=== PATIENT | female | born 1985 | race Caucasian/White ===

== ENCOUNTER → 2020-07-24 10:42 | Outpatient (BNVA) | payer OTHER, SELFPAY | PROVIDERS: Visit Provider Internal Medicine Gastroenterology | DX: Z76.89 Persons encountering health services in other specified circumstances (principal) ==

== ENCOUNTER → 2020-12-01 09:49 | Outpatient (BNVA) | payer OTHER, SELFPAY | PROVIDERS: PCP Physician Assistant; Visit Provider Internal Medicine Gastroenterology ==

== ENCOUNTER 2021-02-16 14:02 | Outpatient (REF) | payer OTHER, SELFPAY ==
--- NOTE | ~2021-02-16 | CT_ITS ---
EXAMINATION: CT ENTEROGRAPHY ABDOMEN AND PELVIS WITH CONTRAST CLINICAL INFORMATION: Periumbilical pain COMPARISON: None TECHNIQUE: Study performed with oral VoLumen (1350 mL) and 480 mL of water to distend the abdomen. The patient was injected with 85 mL Omnipaque 350 intravenous contrast which was administered without adverse effect. Coronal and sagittal reformatted images were obtained at the technologist's workstation. This CT examination was performed using dose optimization techniques as appropriate, variously including the following: *Automated exposure control *Adjustment of mA and/or kV according to patient size (this includes techniques or standardized protocols for targeted exams where dose is matched to indication/reason for exam; i.e. extremities or head) *Use of iterative reconstruction technique DLP: 661 mGy-cm FINDINGS: GASTROINTESTINAL FINDINGS: Stomach: Well-distended and normal in appearance. Small intestine: Satisfactorily distended and normal in appearance. Large intestine: Well-distended and normal in appearance. No perirectal changes demonstrated. The appendix is not identified. No inflammatory changes are seen in the right lower quadrant. Additional findings: No abnormal enhancement of the vasa recta or significant mesenteric or retroperitoneal lymphadenopathy is seen. No abdominal abscess or fistulous tract demonstrated. ABDOMINAL AND PELVIC CT FINDINGS: Liver, gallbladder, biliary tract: Unremarkable Pancreas: Unremarkable Spleen: Unremarkable Adrenal glands and kidneys: Unremarkable Ureters and bladder: Unremarkable Lymphovascular structures: Unremarkable There may be a small 2 x 3 cm left adnexal cyst. The uterus and ovaries are otherwise unremarkable. There is a small umbilical hernia containing fat. Bones: Unremarkable Lung bases: Unremarkable CT/CT enterography IMPRESSION: Small umbilical hernia containing fat. Question 2 x 3 cm left adnexal cyst. Otherwise unremarkable exam.
[2021-02-16] MEDS: iohexoL 350 MG/ML 100 ML INFUS..BTL 85 ML IV (15:37)
== END 2021-02-16 14:03 | disposition home or self-care (01) ==
LOC: HO.US 14:02
PROVIDERS: Visit Provider Internal Medicine Gastroenterology
DX: R10.33 Periumbilical pain (principal)
CPT/HCPCS: 74177; Q9967

== ENCOUNTER → 2021-03-05 09:45 | Outpatient (BNVA) | payer OTHER, SELFPAY | PROVIDERS: PCP Physician Assistant; Visit Provider Internal Medicine Gastroenterology ==

== ENCOUNTER → 2021-05-29 13:31 | Outpatient (BNVA) | payer OTHER, SELFPAY | PROVIDERS: PCP Physician Assistant; Referring Provider Physician Assistant; Visit Provider Surgery | DX: K42.9 Umbilical hernia without obstruction or gangrene (principal) | CPT/HCPCS: 99202 ==

== ENCOUNTER 2021-06-18 07:27 | Day surgery (SDC) | payer OTHER, SELFPAY ==
[2021-06-11 11:32] VITALS: BMI 45.7
[2021-06-18] VITALS (13 sets, daily range): BP systolic 109–137; BP diastolic 66–89; PULSE 60–78; RESP 14–20; TEMP 36.2–36.6; O2SAT 93–99
--- NOTE | 2021-06-18 07:49 | P.CONAN_ITS ---
[facility] Active Problems Active Problems: All Active Problems (Updated 06/11/21 @ 11:32 by Letty lomeli RN) Periumbilical abdominal pain (Acute) Umbilical hernia (Acute) Food allergy (Acute) Past Medical History Medical History Asthma Bipolar disorder COVID-19 vaccine series completed Depression Fibromyalgia Food allergy Gastroparesis Sleep apnea Family History Family History Father No problems noted. Mother No problems noted. Surgical History Surgical History History of tonsillectomy Hx of appendectomy Hx of endoscopy History of Problems with Anesthesia: No Social History Social History Alcohol intake: never Patient Tobacco Use Status: Former Tobacco user Quit Date: 2018 Tobacco use type: Cigarette Substance Use Type: Former Substance User and Marijuana Have you been hit, kicked, punched, or otherwise hurt by someone within the past year? If so, by whom?: No Are you DNR?: No Advance Directives: No Advance Directives Information Provided: Yes (informational brochure mailed) Advance Directives on File: No Recently lost weight without trying: No Eating poorly because of decreased appetite: No Nutrition Risks: No Nutritional Risk Patient : No FDLMP: 05/21/21 : No Poor oral hygiene: No (has temporary crown upper front tooth) Meds Allergies Allergy/AdvReac Type Severity Reaction Status Date / Time almond Allergy Mild Gastrointestinal Verified 06/11/21 11:24 Upset cashew nut Allergy Mild Gastrointestinal Verified 06/11/21 11:24 Upset egg Allergy Mild Gastrointestinal Verified 06/11/21 11:24 Upset hazelnut Allergy Mild Gastrointestinal Verified 06/11/21 11:24 Upset milk Allergy Mild Gastrointestinal Verified 06/11/21 11:24 Upset peanut Allergy Mild Gastrointestinal Verified 06/11/21 11:24 Upset sesame seed Allergy Mild Gastrointestinal Verified 06/11/21 11:24 Upset shellfish derived Allergy Mild Gastrointestinal Verified 06/11/21 11:24 Upset soybean Allergy Mild Gastrointestinal Verified 06/11/21 11:24 Upset walnut Allergy Mild Gastrointestinal Verified 06/11/21 11:24 Upset wheat Allergy Mild Gastrointestinal Verified 06/11/21 11:31 Upset Active Medications: Current Medications Cefazolin Sodium/Dextrose (Ancef) 2 gm in 50 mls @ 100 mls/hr IV PREOP ONE Stop: 06/18/21 08:04 Lactated Ringer's (Lr) 1,000 mls @ 100 mls/hr IVCONT .Q10H EDE Home Medications Medication Instructions Recorded Confirmed Last Taken Type acetaminophen 500 mg tablet 1,000 mg PO Q4H PRN 05/29/21 06/11/21 Unknown History cholecalciferol (vitamin D3) 25 25 mcg PO DAILY 05/29/21 06/11/21 Unknown History mcg (1,000 unit) tablet gabapentin 600 mg tablet 600 mg PO TID 05/29/21 06/11/21 06/18/21 06:00 History melatonin 5 mg tablet 5 mg PO BEDTIME PRN 05/29/21 06/11/21 Unknown History mirtazapine 15 mg tablet 15 mg PO BEDTIME 05/29/21 06/11/21 Unknown History ondansetron 4 mg disintegrating 4 mg PO TID PRN 05/29/21 06/11/21 Unknown History tablet prazosin 1 mg capsule 1 - 2 mg PO BEDTIME 05/29/21 06/11/21 Unknown History pyridoxine (vitamin B6) 50 mg 50 mg PO DAILY 05/29/21 06/11/21 Unknown History tablet albuterol sulfate 90 mcg/actuation 2 puff INHALATION Q4-6H PRN 06/11/21 06/11/21 Unknown History aerosol inhaler (Ventolin HFA) buspirone 7.5 mg tablet 1 tab PO BID 06/11/21 06/11/21 Unknown History clonidine HCl 0.1 mg tablet 0.1 mg PO TID 06/11/21 06/11/21 Unknown History epinephrine 0.3 mg/0.3 mL 0.3 mg IM Q10M PRN 06/11/21 06/11/21 Unknown History injection, auto-injector (EpiPen) fluticasone propionate 220 1 puff INHALATION BID 06/11/21 06/11/21 Unknown History mcg/actuation HFA aerosol inhaler Exam Exam Date and Time: June 18, 2021 0749 Height,Weight and Vital Signs: Height 5 ft 2 in Weight 113.398 kg Airway Mallampati Class: II TM Dist: >3cm Heart: RRR Lungs: CTA Assessment and Plan Assessment Anesthesia Assessment: Anesthesia Plan Discussed and Chart Reviewed Final Anesthetic Review History of Problems with Anesthesia: No NPO: Yes ASA Class: III Final Preanesthetic Review: Meds/Allgs Chart Reviewed, Consent Obtained/Reviewed and Anes Risks/Benef Reviewed Patient Risk: Intermediate Procedure Risk: Low Anesthetic Plan Anesthetic Plan: GA Disposition: Standard PACU
[2021-06-18 07:57] LABS: UPreg QC Valid YES; Urine Pregnancy NEGATIVE (NEGATIVE)
--- NOTE | 2021-06-18 08:36 | MHC.SHP ---
Pre-Procedural Eval Section A Date of Service: 06/18/21 The patient is an INPATIENT: No Changes since office visit: Yes Patient answered all questions; No Cold of Flu in the past 2 weeks, No New Medical Problems and No Changes in Medication The History & Physical has been completed within 30 days and I have reviewed it.: Yes Section B Chief Complaint: Umbilical hernia without obstruction or gangrene Allergies: Allergies Allergy/AdvReac Type Severity Reaction Status Date / Time almond Allergy Mild Gastrointestinal Verified 06/18/21 08:10 Upset cashew nut Allergy Mild Gastrointestinal Verified 06/18/21 08:10 Upset egg Allergy Mild Gastrointestinal Verified 06/18/21 08:10 Upset hazelnut Allergy Mild Gastrointestinal Verified 06/18/21 08:10 Upset milk Allergy Mild Gastrointestinal Verified 06/18/21 08:10 Upset peanut Allergy Mild Gastrointestinal Verified 06/18/21 08:10 Upset sesame seed Allergy Mild Gastrointestinal Verified 06/18/21 08:10 Upset shellfish derived Allergy Mild Gastrointestinal Verified 06/18/21 08:10 Upset soybean Allergy Mild Gastrointestinal Verified 06/18/21 08:10 Upset walnut Allergy Mild Gastrointestinal Verified 06/18/21 08:10 Upset wheat Allergy Mild Gastrointestinal Verified 06/18/21 08:10 Upset Plan Diagnosis/Plan: Unchanged I have reviewed the history and physical and performed a pertinent physical examination on my patient. No changes have occurred unless specified.
[2021-06-18] MEDS: Lactated Ringers 1,000 ML 100 ML IVCONT (08:54)
--- NOTE | 2021-06-18 09:54 | W.PM.OPN ---
Operative Note Operative Note Date of Service: 06/18/21 Narrative: Preoperative diagnosis: Umbilical hernia Postoperative diagnosis: Same Procedure: Repair of umbilical hernia with mesh Surgeon: Koby Paul MD Geriatric Psychiatrist: Heather Shrestha PA-C Anesthesia: General LMA Indications for procedure: 35-year-old female patient presenting with complaints of abdominal pain in the periumbilical region found on CT enterography to have a moderate size umbilical hernia containing preperitoneal fat. Operative findings: 3 cm umbilical hernia with no evidence of incarcerated bowel Specimen: None Estimated blood loss: 2 mL Complications: None Procedure details: Patient was brought to the OR and placed in a supine position. After administering general anesthesia the patient's abdomen was prepped with ChloraPrep and draped in a sterile fashion. A surgical time-out was called and the consent confirmed. Patient received preoperative antibiotics and Venodyne boots were in place. Local anesthesia consisting of 0.5% Sensorcaine without epinephrine was infiltrated around the umbilicus. Curvilinear incision was made in transverse fashion around the top portion of the umbilicus. This was carried down through subcutaneous tissue down to the hernia sac. The umbilical skin was then dissected off the hernia sac using electrocautery. The hernia sac was then dissected down to the fascial defect. Fascial edge was then dissected circumferentially and in the infra muscular dissection performed. An 8 cm space was created in in for muscular location. An 8 cm round Ventralex mesh was then obtained. This was then deployed into the retro muscular space and secured in 4 quadrants using a 1 Tycron suture. Fascia was then closed over the mesh using [id number] 1 Tycron sutures. Wounds were then irrigated and suctioned dry. Additional local anesthesia was infiltrated into the muscular tissue with his known. Umbilical skin was then reapproximated to the fascial edge using a 3-0 Polysorb suture. Dermis was reapproximated using interrupted 3-0 Polysorb sutures. Skin was closed using a running subcuticular 4-0 Polysorb suture. Steri-Strips 2 x 2 gauze and Tegaderm were then applied. The patient tolerated the procedure well. Sponge, instrument, and needle counts reported as correct 3 patient was transferred to PACU in stable condition.
[2021-06-18] MEDS: oxyCODONE HCl Immed Release 5 MG TABLET 10 MG PO (10:20)
[2021-06-18] MEDS: Acetaminophen 325 MG TABLET 650 MG PO (10:20)
[2021-06-18] MEDS: fentaNYL citrate/PF 100 MCG/2 ML VIAL 50 MCG IVPUSH ×4 (10:22→11:02)
== END 2021-06-18 12:00 | disposition home or self-care (01) ==
PROVIDERS: PCP Physician Assistant; Visit Provider Surgery
PROC: (CPT 49585; principal; 2021-06-18 09:10)
DX: K42.9 Umbilical hernia without obstruction or gangrene (principal); K31.84 Gastroparesis; F12.90 Cannabis use, unspecified, uncomplicated; Z91.018 Allergy to other foods; J45.909 Unspecified asthma, uncomplicated
CPT/HCPCS: 49585; 81025; C1781; J0690; J1100; J2250; J2405; J3010

== ENCOUNTER → 2021-06-26 13:38 | Outpatient (BNVA) | payer OTHER, SELFPAY | PROVIDERS: PCP Physician Assistant; Referring Provider Physician Assistant; Visit Provider Surgery | DX: K42.9 Umbilical hernia without obstruction or gangrene (principal); K31.84 Gastroparesis; F17.210 Nicotine dependence, cigarettes, uncomplicated; F12.11 Cannabis abuse, in remission; Z91.012 Allergy to eggs; Z91.02 Food additives allergy status; Z91.011 Allergy to milk products; Z91.018 Allergy to other foods; Z91.010 Allergy to peanuts | CPT/HCPCS: 99212 ==

== ENCOUNTER → 2021-09-10 14:33 | Outpatient (BNVA) | payer OTHER, SELFPAY | PROVIDERS: PCP Physician Assistant; Referring Provider Physician Assistant; Visit Provider Internal Medicine Gastroenterology ==

== ENCOUNTER → 2021-10-11 14:03 | Outpatient (BNVA) | payer OTHER, SELFPAY | PROVIDERS: PCP Physician Assistant; Referring Provider Physician Assistant; Visit Provider Surgery | DX: Z48.815 Encounter for surgical aftercare following surgery on the digestive system (principal); Z87.19 Personal history of other diseases of the digestive system | CPT/HCPCS: 99212 ==

== ENCOUNTER → 2022-06-14 13:00 | Outpatient (BNVA) | payer OTHER, SELFPAY | PROVIDERS: Visit Provider Nurse Practitioner Family | DX: G47.30 Sleep apnea, unspecified (principal) | CPT/HCPCS: 99202 ==

== ENCOUNTER → 2023-01-24 10:47 | Outpatient (BNVA) | payer OTHER, SELFPAY | PROVIDERS: PCP Physician Assistant; Visit Provider Internal Medicine Gastroenterology ==